=== PATIENT | male | born 1965 | race Caucasian/White ===

== ENCOUNTER → 2016-12-17 | Outpatient (REF) | LOC: WSOH 13:01 | DX: Z11.1 Encounter for screening for respiratory tuberculosis (principal) ==

== ENCOUNTER → 2016-12-26 | Outpatient (REF) | LOC: WSOH 10:10 | DX: Z00.00 Encounter for general adult medical examination without abnormal findings (principal) ==

== ENCOUNTER 2020-08-29 07:27 | Day surgery (SDC) | payer OTHER ==
[~2020-08-29] VITALS: Ht 175.3 cm; Wt 80.7 kg
[2020-08-29 07:53] VITALS: BP 142/70; PULSE 55; TEMP 98.6
[2020-08-29] MEDS ORDERED: NASACORT OTC NS (08:04)
[2020-08-29] MEDS ORDERED: CLARITIN 1010 MG/TAB PO (08:04)
--- NOTE | 2020-08-29 08:07 | NUR ---
TO RM AT 0730- CALL LIGHT IN REACH
[2020-08-29 09:25] VITALS: BP 124/81; PULSE 76; TEMP 97.8
--- NOTE | 2020-08-29 09:25 | NUR ---
TO RM 5 PER CART FROM ENDOSCOPY. ALERT ORIENTED X3, TALKING WITH STAFF. AMBULATED TO RECLINER WITH ASSIST. DR MOREJON INTO TALK WITH PATIENT. RECEIVED WATER AND DENIES WANTING ANYTHING TO EAT.
[2020-08-29 09:40] VITALS: BP 135/86; PULSE 69
--- NOTE | 2020-08-29 09:40 | NUR ---
PATIENT STATED HE FEELS GOOD AND READY TO GO HOME. FRIEND JOSE ALBERTO CALLED FOR RIDE HOME.
--- NOTE | 2020-08-29 09:45 | NUR ---
RECEIVED DISCHARGE INSTRUCTIONS AND VERBALIZED UNDERSTANDING. DISCONTINUED IV AND INT. AFTER GETTING DRESSED PATIENT AMBULATED TO BATHROOM.
--- NOTE | 2020-08-29 09:55 | NUR ---
DISCHARGED PER WC BY NURSING STAFF TO PRIVATE CAR IN CARE OF FRIEND JOSE ALBERTO.
== END 2020-08-29 10:15 | disposition home or self-care (01) ==
LOC: SDCO 07:27
DX: Z12.11 Encounter for screening for malignant neoplasm of colon (principal); D12.5 Benign neoplasm of sigmoid colon; D12.8 Benign neoplasm of rectum; K64.0 First degree hemorrhoids; K57.30 Diverticulosis of large intestine without perforation or abscess without bleeding; Z20.828 Contact with and (suspected) exposure to other viral communicable diseases; Z79.899 Other long term (current) drug therapy
CPT/HCPCS: J2704; J7030